=== PATIENT | female | born 1965 | race Caucasian/White ===

== ENCOUNTER 2017-10-29 14:24 | Outpatient (CLI) | payer OTHER | END 2017-10-29 14:25 | disposition home or self-care (01) | LOC: BICMAMMO 14:24 | PROVIDERS: ATTEND Family Medicine | DX: Z12.31 Encounter for screening mammogram for malignant neoplasm of breast (principal); R92.1 Mammographic calcification found on diagnostic imaging of breast; Z85.841 Personal history of malignant neoplasm of brain | CPT/HCPCS: 77063; 77067 ==

== ENCOUNTER 2017-11-19 13:08 | Outpatient (CLI) | payer OTHER ==
--- NOTE | 2017-11-19 15:07 | MRI ---
BRAIN MRI WITH AND WITHOUT CONTRAST: Date: 11/19/17 Reference made to 08/16/15. CLINICAL INDICATION: Brain tumor, follow-up. FINDINGS: Redemonstration of cystic and solid mass centered about the ependyma of the body of the right lateral ventricle with extension into the right morton radiata. The cystic component of the mass has signifi cantly increased in size, now measuring 2.8 cm in diameter. The internal nodular component measures a pproximately 1.5 x 1.7 cm in axial dimension, slightly increased in volume from the prior exam. Inter nal enhancement persists. Redemonstration of associated susceptibility artifact. Gliotic tract of the right frontal lobe extending to the site of the mass is redemonstrated. There is no new midline shif t. No evidence of acute territorial infarction. No new pathologic intra-axial enhancement is visualiz ed. IMPRESSION: Cystic and solid mass situated at the ependyma of the lateral aspect of the body of the right lateral ventricle with extension into the right morton radiate is redemonstrated. The cystic component has i ncreased in size and there has been slight interval progression in volume of the nodular component. POS: DAVID
== END 2017-11-19 13:09 | disposition home or self-care (01) ==
LOC: SCSMRI 13:08
PROVIDERS: ATTEND Neurological Surgery
DX: D49.6 Neoplasm of unspecified behavior of brain (principal); G93.0 Cerebral cysts
CPT/HCPCS: 70553

== ENCOUNTER 2018-05-20 06:18 | Day surgery (SDC) | payer OTHER ==
[2018-05-13 13:43] VITALS: BMI 38.0
[2018-05-20] MEDS ORDERED: CEFAZOLIN 2 GM/50 ML BAG ONE (07:16)
[2018-05-20] MEDS ORDERED: Midazolam HCl 2 mg/2 ml Vial ONE (07:54)
[2018-05-20] MEDS ORDERED: Betamet Acet/Betamet Na Ph 30 MG/5 ML VIAL ONE (07:56)
[2018-05-20] MEDS ORDERED: Bupivacaine PF 0.5% 30 ML VIAL ONE (07:56)
[2018-05-20] MEDS ORDERED: Fentanyl 100 MCG/2 ML VIAL ONE (08:06)
[2018-05-20] MEDS ORDERED: Ketorolac Tromethamine 30 MG/ML VIAL ONE ×2 (08:56→17:03)
--- NOTE | 2018-05-20 15:47 | OP ---
DATE OF PROCEDURE: 05/20/2018 PREOPERATIVE DIAGNOSIS: Right middle finger and ring finger A1 shobha tenosynovitis. POSTOPERATIVE DIAGNOSIS: Right middle finger and ring finger A1 shobha tenosynovitis with A1 shobha triggering and following at these digits 1. Middle finger with marked tenosynovitis, flexor digitorum superficialis. 2. Long finger ganglion of the tendon sheath along with the trigger digit. PROCEDURES PERFORMED: At the right ring finger, 1. Trigger digit release A1 shobha. 2. Flexor digitorum superficialis with radical flexor tenosynovectomy. At the right middle finger, 1. Trigger digit release. 2. Ganglion excision, flexor tendon sheath. TOURNIQUET TIME: 12 minutes. ANESTHESIA: general LMA technique augmented by a total of 20 mL of 0.5% Marcaine block, 10 given before the incision and 10 after the incision closed. SPECIMEN SENT: Ganglion from the middle finger and ring finger tenosynovial . DESCRIPTION OF PROCEDURE: After successful anesthesia as listed above, limb was prepped and draped. Time-out done appropriately with specific documentation that it was the ring finger and the middle finger on the right hand that we were doing the trigger digit releases. I outlined a slightly oblique incisions on the radial side of the middle finger and in line with the ulnar aspect of the ring finger to have maximum soft tissue stability in between. After the limb was exsanguinated, tourniquet inflation to 250 mmHg pressure. We started with the ring finger, carried through skin and subcutaneous tissue, identified digital nerve and protected them. We then visualized the A1 shobha, where there was thick tenosynovium proximal to and released the A1 shobha in midline under direct visualization with a [place] blade. Inspected the tendon. The flexor digitorum superficialis had marked thickening, so radical flexor tenosynovectomy was performed and a sample of this was sent as a specimen. We turned attention to the right middle finger where the same incision was made and the same technique was used to protect the digital nerves to visualize the sheath, and we immediately saw approximately 3.5 mm ganglion in the center of the A1 shobha, so we released the shobha and then used the [place] blade and then used a [place] blade with protection of the digital nerve, removed the ganglion. We inspected the tendons and there was no tenosynovial edema here. We sent the ganglion and the tenosynovium of the specimen, placed 2 mL of Celestone in each wound, released the tourniquet, obtained hemostasis. We then closed the incision in interrupted 4-0 nylon mattress pattern. Bulky dressing was applied and the last Marcaine was given and the patient left the operating room without evidence of anesthetic or operative complication. Job ID: [id number]
[2018-05-20] MEDS ORDERED: diphenhydrAMINE 50 MG/ML VIAL ONE (17:03)
[2018-05-20] MEDS ORDERED: Ondansetron PF 4 MG/2 ML Vial ONE (17:03)
[2018-05-20] MEDS ORDERED: Lidocaine 1% PF 5 ML VIAL ONE (17:03)
[2018-05-20] MEDS ORDERED: Metoclopramide HCl 10 MG/2 ML VIAL ONE (17:03)
[2018-05-20] MEDS ORDERED: Dexamethasone 20 MG/5 ML VIAL ONE (17:03)
[2018-05-20] MEDS ORDERED: PROPOFOL 200 MG/20 ML VIAL ONE (17:03)
== END 2018-05-20 10:56 | disposition home or self-care (01) ==
LOC: SDC 06:18
PROVIDERS: ATTEND Orthopaedic Surgery Hand Surgery
PROC: 0LN70ZZ Release Right Hand Tendon, Open Approach (ICD-10-PCS; principal; 2018-05-20)
PROC: 0LB70ZZ Excision of Right Hand Tendon, Open Approach (ICD-10-PCS; principal; 2018-05-20)
PROC: 0RBW0ZZ Excision of Right Finger Phalangeal Joint, Open Approach (ICD-10-PCS; principal; 2018-05-20)
DX: M67.441 Ganglion, right hand (principal); M65.841 Other synovitis and tenosynovitis, right hand; M65.331 Trigger finger, right middle finger; M65.341 Trigger finger, right ring finger; Z91.048 Other nonmedicinal substance allergy status; Z91.09 Other allergy status, other than to drugs and biological substances; Z79.899 Other long term (current) drug therapy; Z98.890 Other specified postprocedural states
CPT/HCPCS: 88304; 88305; 96372; J0702; J1100; J1200; J1885; J2001; J2250; J2405; J2704; J2765; J3010; S0020

== ENCOUNTER 2018-11-22 08:25 | Outpatient (CLI) | payer OTHER ==
--- NOTE | 2018-11-22 09:40 | MRI ---
BRAIN MRI WITH AND WITHOUT CONTRAST: Date: 11/22/18 COMPARISON: 11/19/2017, 08/14/2015, 07/07/2013. HISTORY: Brain tumor status post surgery, history of chronic headaches. TECHNIQUE: Multiplanar multisequence MR imaging of the brain obtained with and without contrast. 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 The diffusion weighted imaging demonstrates no evidence for acute infarction. There is evidence of prior right frontal craniotomy. There is a mass with a cystic and solid/nodular configuration associated with the lateral ependyma of the right lateral ventricle. The cystic component is along the superior margin and measures 2.3 cm in AP dimension, decreased in size when co mpared to the most recent prior examination at which time the cystic component measured 2.6 cm. The inferior nodular component measures 1.5 cm in AP dimension, not significantly changed when compared t o the prior examination. There is susceptibility artifact consistent with internal blood products and/or calcification within the nodular inferior component, similar when compared to the prior examin ation. Stable foci of nodular internal enhancement noted involving the inferior nodular component of this ma ss lesion. Stable gliosis is seen involving the adjacent subcortical deep and periventricular white matter in th e right frontal region. No additional intracranial lesion identified. Postcontrast imaging appears otherwise grossly unremark able. Imaged paranasal sinuses/mastoid air cells appear well aerated. Arterial flow voids at the axial level of the skull base appear unremarkable on the T2-weighted imaging. IMPRESSION: Solid and cystic intracranial lesion associated with the ependyma of the right lateral ventricle as d etailed above. The cystic component has decreased in size while the inferior nodular component is stable. Transcribed Date/Time: 11/22/2018 11:00 AM
[2018-11-22] MEDS ORDERED: Gadobenate Dimeglumine 529 MG/1 ML (20ML VIAL) ONE (14:03)
== END 2018-11-22 08:26 | disposition home or self-care (01) ==
LOC: TBSIIMAG 08:25
PROVIDERS: ATTEND Neurological Surgery
DX: D49.6 Neoplasm of unspecified behavior of brain (principal); G93.9 Disorder of brain, unspecified
CPT/HCPCS: 70553; A9577

== ENCOUNTER 2018-11-22 13:18 | Outpatient (CLI) | payer OTHER ==
--- NOTE | 2018-11-22 13:55 | MMO ---
Bilateral MAMMO Bilat Screen [facility]. CLINICAL HISTORY: Patient is 53 years old and is seen for screening. The patient has no family history of breast cancer. The patient has a history of brain cancer at age 44. VIEWS: The views performed were: bilateral craniocaudal and bilateral mediolateral oblique. FILMS COMPARED: The present examination has been compared to prior imaging studies performed at [facility] on 11/29/2015 and 10/29/2017, and at [facility] on 08/19/2012. This study has been interpreted with the assistance of computer-aided detection. MAMMOGRAM FINDINGS: There are scattered fibroglandular densities. There are no suspicious masses, suspicious calcifications, or new areas of architectural distortion. IMPRESSION: THERE IS NO MAMMOGRAPHIC EVIDENCE OF MALIGNANCY. A ROUTINE FOLLOW-UP MAMMOGRAM IN 1 YEAR IS RECOMMENDED. ACR BI-RADS Category 1 - Negative MAMMOGRAPHY NOTE: 1. A negative mammogram report should not delay a biopsy if a dominant of clinically suspicious mass is present. 2. Approximately 10% to 15% of breast cancers are not detected by mammography. 3. Adenosis and dense breasts may obscure an underlying neoplasm. Reported by: COMPA GUTHRIE MD Electonically Signed: [id number]
== END 2018-11-22 13:19 | disposition home or self-care (01) ==
LOC: SCSMAMMO 13:18
PROVIDERS: ATTEND Family Medicine
DX: Z12.31 Encounter for screening mammogram for malignant neoplasm of breast (principal); Z85.841 Personal history of malignant neoplasm of brain
CPT/HCPCS: 77067

== ENCOUNTER 2019-03-17 05:53 | Day surgery (SDC) | payer OTHER ==
[2019-03-16 08:10] VITALS: BMI 37.3
[2019-03-17 06:38] LABS: #Basophils 0.1 thou/uL (0.0-0.2); #Eosinphils 0.3 thou/uL (0.0-0.7); #Lymphocytes 1.9 thou/uL (1.20-3.40); #Monocytes 0.5 thou/uL (0.11-0.59); #Neutrophils 4.6 thou/uL (1.40-6.50); %Eosinophils 4.7 % (0.0-10.0); %Lymphocytes 25.9 % (21.0-51.0); %Monocytes 6.9 % (0.0-10.0); %Neutrophils 61.5 % (42.0-75.0); Hemoglobin 14.2 g/dL (12.0-16.0); Mean Corpuscular HGB CONC 32.9 g/dL (32.0-36.0); Mean Corpuscular Hemoglobin 29.1 pg (27.0-31.0); Mean Corpuscular Volume 88.6 fL (78.0-98.0); Mean Platelet Volume 7.6 fL (7.4-10.4); Platelet Count 262 thou/uL (130-400); Red Blood Cell (RBC) Count 4.87 mill/uL (4.20-5.40); White Blood Cell (WBC) Count 7.5 thou/uL (4.8-10.8)
[2019-03-17] MEDS ORDERED: Promethazine HCl 25 MG/ML VIAL ONE (06:48)
[2019-03-17] MEDS ORDERED: HYDROmorphone 0.5 MG/0.5 ML SYRINGE ONE (06:48)
[2019-03-17] MEDS ORDERED: Betamet Acet/Betamet Na Ph 30 MG/5 ML VIAL ONE (06:50)
[2019-03-17] MEDS ORDERED: Sodium Chloride 0.9% 10 ML ONE (06:50)
[2019-03-17] MEDS ORDERED: Bupivacaine PF 0.5% 30 ML VIAL ONE (06:50)
[2019-03-17] MEDS ORDERED: Bacitracin Zinc Ointment 30 gm TUBE ONE (06:50)
--- NOTE | 2019-03-17 08:37 | OP ---
DATE OF PROCEDURE: 03/17/2019 PREOPERATIVE DIAGNOSIS: Left ring finger A1 shobha trigger finger/tenosynovitis. POSTOPERATIVE DIAGNOSIS: Left ring finger A1 shobha trigger finger/tenosynovitis. FINDINGS: Tight A1 shobha band with minimal amount of tenosynovitis. PROCEDURE PERFORMED: A1 shobha release. SPECIMEN: None. TOURNIQUET TIME: 12 minutes. ESTIMATED BLOOD LOSS: Less than 5 mL. COMPLICATIONS: None. INDICATIONS: Failed conservative treatment including injection therapy, splint, and anti-inflammatories, and time. DESCRIPTION OF PROCEDURE: After successful general endotracheal anesthesia, limb was prepped and draped. We gave 10 mL of 0.5% Marcaine block over an area of a zigzag incision outlined, centered over an A1 shobha slightly more radial than the midline over the ring finger A1 shobha. We carried this through skin and subcutaneous tissue, after exsanguinating the limb and inflating the tourniquet to 250 mmHg pressure. We dissected sharply down to visualize the neurovascular bundle and protected it from the midline in the field, identified the A1 shobha and released it under direct visualization with a [place] blade. We lifted the tendon up. There was no masses. Only a small amount of tenosynovium, so no formal tenosynovectomy was required. We then released the tourniquet, obtained hemostasis. We placed 2.5 mL of Celestone in the wound and then we closed with interrupted 4-0 nylon in mattress pattern. Bulky dressing was applied. The patient left the operating room without evidence of anesthetic or operative complication. Job ID: [id number]
[2019-03-17] MEDS ORDERED: Lidocaine 1% PF 5 ML VIAL ONE (09:59)
[2019-03-17] MEDS ORDERED: Dexamethasone 20 MG/5 ML VIAL ONE (09:59)
[2019-03-17] MEDS ORDERED: Ondansetron PF 4 MG/2 ML Vial ONE (09:59)
[2019-03-17] MEDS ORDERED: PROPOFOL 200 MG/20 ML VIAL ONE (09:59)
[2019-03-17] MEDS ORDERED: ePHEDrine/0.9% NaCl/PF SYRINGE 50 mg/10 ml ONE (09:59)
[2019-03-17] MEDS ORDERED: Ketorolac Tromethamine 30 MG/ML VIAL ONE (09:59)
== END 2019-03-17 09:30 | disposition home or self-care (01) ==
LOC: SDC 05:53
PROVIDERS: ATTEND Orthopaedic Surgery Hand Surgery
PROC: 0LN80ZZ Release Left Hand Tendon, Open Approach (ICD-10-PCS; principal; 2019-03-17)
DX: M65.342 Trigger finger, left ring finger (principal); M65.9 Synovitis and tenosynovitis, unspecified; Z91.048 Other nonmedicinal substance allergy status
CPT/HCPCS: 36415; 85025; J0690; J0702; J1100; J1170; J1885; J2001; J2405; J2550; J2704; J3490; S0020

== ENCOUNTER 2019-11-24 14:04 | Outpatient (CLI) | payer OTHER ==
--- NOTE | 2019-11-24 14:26 | MMO ---
Bilateral MAMMO Bilat Screen [facility]. CLINICAL HISTORY: Patient is 54 years old and is seen for screening. The patient has no family history of breast cancer. The patient has a history of brain cancer at age 44. VIEWS: The views performed were: bilateral craniocaudal with tomosynthesis and bilateral mediolateral oblique with tomosynthesis. FILMS COMPARED: The present examination has been compared to prior imaging studies performed at [facility] on 11/22/2018, at [facility] on 11/29/2015 and 10/29/2017, and at [facility] on 08/19/2012. This study has been interpreted with the assistance of computer-aided detection. MAMMOGRAM FINDINGS: There are scattered fibroglandular densities. There are stable benign appearing calcifications seen in both breasts. There are no suspicious masses, suspicious calcifications, or new areas of architectural distortion. IMPRESSION: THERE IS NO MAMMOGRAPHIC EVIDENCE OF MALIGNANCY. A ROUTINE FOLLOW-UP MAMMOGRAM IN 1 YEAR IS RECOMMENDED. THE RESULTS OF THIS EXAM WERE SENT TO THE PATIENT. ACR BI-RADS Category 2 - Benign finding MAMMOGRAPHY NOTE: 1. A negative mammogram report should not delay a biopsy if a dominant of clinically suspicious mass is present. 2. Approximately 10% to 15% of breast cancers are not detected by mammography. 3. Adenosis and dense breasts may obscure an underlying neoplasm. Reported by: NARINDER RUSS MD Electonically Signed: [id number]
== END 2019-11-24 14:05 | disposition home or self-care (01) ==
LOC: BICMAMMO 14:04
PROVIDERS: ATTEND Family Medicine
DX: Z12.31 Encounter for screening mammogram for malignant neoplasm of breast (principal); Z85.841 Personal history of malignant neoplasm of brain
CPT/HCPCS: 77063; 77067

== ENCOUNTER 2020-08-12 18:30 | Outpatient (CLI) | payer OTHER | END 2020-08-12 18:31 | disposition home or self-care (01) | LOC: SLEEPLAB 18:30 | PROVIDERS: ATTEND Family Medicine | DX: G47.33 Obstructive sleep apnea (adult) (pediatric) (principal); G47.00 Insomnia, unspecified; R06.83 Snoring; E66.9 Obesity, unspecified; Z68.35 Body mass index [BMI] 35.0-35.9, adult | CPT/HCPCS: 95806 ==

== ENCOUNTER 2020-09-20 10:20 | Outpatient (CLI) | payer OTHER | END 2020-09-20 10:21 | disposition home or self-care (01) | LOC: TBSIIMAG 10:20 | PROVIDERS: ATTEND Orthopaedic Surgery | DX: M75.42 Impingement syndrome of left shoulder (principal) ==

== ENCOUNTER 2021-06-27 13:30 | Outpatient (CLI) | payer OTHER | END 2021-06-27 13:31 | disposition home or self-care (01) | LOC: BICMAMMO 13:30 | PROVIDERS: ATTEND Family Medicine | DX: Z12.31 Encounter for screening mammogram for malignant neoplasm of breast (principal); Z85.841 Personal history of malignant neoplasm of brain | CPT/HCPCS: 77063; 77067 ==

== ENCOUNTER 2021-09-05 13:19 | Outpatient (CLI) | payer OTHER | END 2021-09-05 13:20 | disposition home or self-care (01) | LOC: SCSMRI 13:19 | PROVIDERS: ATTEND Orthopaedic Surgery Hand Surgery | DX: R22.31 Localized swelling, mass and lump, right upper limb (principal); R93.7 Abnormal findings on diagnostic imaging of other parts of musculoskeletal system ==

== ENCOUNTER 2021-11-30 09:56 | Emergency (ER) | payer OTHER ==
[2021-11-30] MEDS ORDERED: Ondansetron ODT 4 MG TAB ONE (11:21)
[2021-11-30] MEDS ORDERED: Acetaminophen 500 MG TAB ONE (11:21)
== END 2021-11-30 12:24 | disposition home or self-care (01) ==
LOC: ERS 09:56
DX: S09.90XA Unspecified injury of head, initial encounter (principal); W18.09XA Striking against other object with subsequent fall, initial encounter
CPT/HCPCS: 70450; Q0162

== ENCOUNTER 2022-08-07 14:03 | Outpatient (CLI) | payer OTHER | END 2022-08-07 14:04 | disposition home or self-care (01) | LOC: BICMAMMO 14:03 | PROVIDERS: ATTEND Internal Medicine Nephrology | DX: Z12.31 Encounter for screening mammogram for malignant neoplasm of breast (principal); N63.14 Unspecified lump in the right breast, lower inner quadrant | CPT/HCPCS: 77063; 77067 ==

== ENCOUNTER 2022-08-13 14:28 | Outpatient (CLI) | payer OTHER | END 2022-08-13 14:29 | disposition home or self-care (01) | LOC: BICMAMMO 14:28 | PROVIDERS: ATTEND Family Medicine | DX: N63.14 Unspecified lump in the right breast, lower inner quadrant (principal) | CPT/HCPCS: G0279 ==

== ENCOUNTER 2022-12-04 09:24 | Day surgery (SDC) | payer OTHER ==
[2022-11-27 15:33] VITALS: BMI 37.3
[2022-12-04] MEDS ORDERED: Bupivacaine PF 0.5% 30 ML VIAL ONE (10:50)
[2022-12-04] MEDS ORDERED: Bacitracin Zinc Ointment 30 gm TUBE ONE (10:50)
[2022-12-04] MEDS ORDERED: Betamet Acet/Betamet Na Ph 30 MG/5 ML VIAL ONE (10:50)
[2022-12-04] MEDS ORDERED: fentaNYL PF 100 MCG/2 ML SYRINGE ONE (10:51)
[2022-12-04] MEDS ORDERED: Sodium Chloride 0.9% 100 ML ONE (11:00)
[2022-12-04] MEDS ORDERED: CEFAZOLIN 2 GM VIAL ONE (11:00)
[2022-12-04] MEDS ORDERED: Metoclopramide HCl 10 MG/2 ML VIAL ONE (11:41)
[2022-12-04] MEDS ORDERED: Dexamethasone 20 MG/5 ML VIAL ONE (11:41)
[2022-12-04] MEDS ORDERED: PROPOFOL 200 MG/20 ML VIAL ONE (11:41)
[2022-12-04] MEDS ORDERED: Ondansetron PF 4 MG/2 ML Vial ONE (11:41)
[2022-12-04] MEDS ORDERED: ePHEDrine Sulfate 50 MG/10 ML VIAL ONE (11:41)
[2022-12-04] MEDS ORDERED: Ketorolac Tromethamine 30 MG/ML VIAL ONE (13:03)
== END 2022-12-04 14:45 | disposition home or self-care (01) ==
LOC: SDC 09:24
PROVIDERS: ATTEND Orthopaedic Surgery Hand Surgery
PROC: 0RBW0ZZ Excision of Right Finger Phalangeal Joint, Open Approach (ICD-10-PCS; principal; 2022-12-04)
PROC: 0LN70ZZ Release Right Hand Tendon, Open Approach (ICD-10-PCS; principal; 2022-12-04)
DX: M65.311 Trigger thumb, right thumb (principal); M18.0 Bilateral primary osteoarthritis of first carpometacarpal joints; R22.31 Localized swelling, mass and lump, right upper limb; G25.9 Extrapyramidal and movement disorder, unspecified; G47.33 Obstructive sleep apnea (adult) (pediatric); F32.A Depression, unspecified; Z98.51 Tubal ligation status; Z79.899 Other long term (current) drug therapy
CPT/HCPCS: 88305; J0702; J1100; J1885; J2405; J2704; J2765; J3490; S0020

== ENCOUNTER 2023-10-01 13:57 | Outpatient (CLI) | payer OTHER | END 2023-10-01 13:58 | disposition home or self-care (01) | LOC: BICMAMMO 13:57 | PROVIDERS: ATTEND Family Medicine | DX: Z12.31 Encounter for screening mammogram for malignant neoplasm of breast (principal); Z85.841 Personal history of malignant neoplasm of brain | CPT/HCPCS: 77063; 77067 ==